=== PATIENT | male | born 1995 ===

== ENCOUNTER 2017-07-04 17:49 | Emergency (ER) | payer SELFPAY ==
[~2017-07-04] VITALS: Ht 180.3 cm; Wt 100.0 kg
[2017-07-04] MEDS ORDERED: ATARAX 25MG25 MG/TAB PO (18:50)
[2017-07-04] MEDS ORDERED: PHENERGAN 25 TA25 MG PO (18:50)
[2017-07-04 19:33] VITALS: BP 151/75; PULSE 86; TEMP 99.1
== END 2017-07-04 19:21 | disposition home or self-care (01) ==
LOC: COL.ER 17:49
DX: F14.23 Cocaine dependence with withdrawal (principal); F17.210 Nicotine dependence, cigarettes, uncomplicated